=== PATIENT | male | born 1950 | race Caucasian/White ===

== ENCOUNTER 2022-11-07 19:05 | Inpatient (IN) ==
--- NOTE | 2022-11-07 19:45 | Emergency Department Note ---
Impression & Plan PARISH (dyspnea on exertion) ED Provider Note INFORMANT: Patient and family ED PROVIDER(S): Arturo Puente MD CHIEF COMPLAINT: Shortness of breath, dyspnea on exertion PLAN: Disposition: Admitted Condition: Good Outpatient prescription management: none Referral: None MEDICAL DECISION MAKING: Patient presented because of shortness of breath. He has a concerning cardiac history. Work-up was initiated. His ECG showed atrial fibrillation with T wave inversion but these are old. Patient had an unremarkable CBC and chemistry panel. INR was therapeutic at 3.0. Pacemaker interrogation was negative. Patient's BNP is markedly elevated and he does have cardiomegaly plus pulmonary vascular congestion on chest x-ray. Troponin was negative. I believe the patient is having issues with a shortness of breath from a cardiac standpoint. Patient was given IV Lasix. Further management in the hospital was felt to be appropriate. Consultation was made with the Dr. Rc Calvillo, [facility] Hospitalist service. Case was discussed and diagnostics were reviewed. Patient was evaluated in ER admitted for further management. Discussed with manager [employer] After review of the information above and other included data, I feel the patient requires admission. Triage Nursing notes reviewed and agree them. Vital Signs: reviewed and remarkable for no significant abnormalities Prior /Outside records reviewed: none Differential diagnosis: Reactive airway disease, pneumonia, pneumothorax, COPD, CHF, infections, cardiac ischemia, pulmonary embolism, musculoskeletal, gastrointestinal, as well as other pathologies. Diagnostics, as interpreted by me: ECG: Twelve-lead ECG reveals atrial fibrillation at 94 bpm. Right axis deviation. LVH with QRS widening. Lateral T wave inversions present. When compared to March 2022 there is no significant change. Cardiac Monitoring: Cardiac monitoring ordered by me: The patient was placed on continuous cardiac monitoring and observed. It revealed atrial fibrillation at 115 beats per minute. Medical decision rules: none Imaging studies: Chest x-ray shows cardiomegaly and and pulmonary vascular congestion concerning for CHF. HPI: The patient is a 72 year old male who presents to the Emergency Room with complaints of shortness of breath, dyspnea on exertion. This started over the last few weeks but has worsened over the last several days. Patient states he has difficulty walking 10 to 15 feet felt very significant shortness of breath. The patient also notes the following associated symptoms, fatigue and generalized weakness. Patient states he has a history of fluid buildup and pacemaker defibrillator. He is anticoagulated as well. The patient has found no relieving factors. Current pain is rated as 0/10. Patient also notes a chronic cough. Pt denies LOC, headache, fevers, chills, diaphoresis, visual changes, neck pain, chest pain, nausea, vomiting, abdominal pain, back pain, melena, hematochezia, urinary symptoms, numbness, , or other complaints. PAST MEDICAL HISTORY: See Below, cardiomyopathy, atrial fibrillation PAST SURGICAL HISTORY: See Below, pacemaker defibrillator SOCIAL HISTORY: See Below, retired HOME MEDICATIONS: See Below ALLERGIES: See Below VITALS: See Below PHYSICAL EXAMINATION: GENERAL: Awake, alert, [id number], in no distress HENT: Normocephalic, atraumatic. Oropharynx unremarkable. EYES: Normal conjunctiva. Sclera non-icteric. NECK: Inspection normal. Non-tender. Supple. No nuchal rigidity. FROM. No masses. RESPIRATORY: Clear to auscultation. No wheezes. No rales. Normal respiratory effort. CARDIAC: Normal rate. Irregular rhythm. No murmurs. No rubs. Extremities warm and well perfused. Pulses equal. No JVD. GI: Soft, non-distended. No tenderness to palpation. No rebound or guarding. No masses. RECTAL: Deferred. MUSCULOSKELETAL: Atraumatic. Chest examination reveals no tenderness. The back is symmetrical on inspection without obvious abnormality. There is no CVA tenderness to palpation. No joint edema. LOWER EXTREMITIES: Calves are equal size bilaterally and non-tender. No edema. No discoloration. NEURO: Normal sensorium. No sensory or motor deficits noted. SKIN: No rash or jaundice noted. Past Med/Surg History Medical History Anxiety Atrial fibrillation CKD (chronic kidney disease) Heart failure with reduced ejection fraction HLD (hyperlipidemia) HTN (hypertension) NICM (nonischemic cardiomyopathy) Pre-diabetes Social History Smoking Status: Never smoker Hx Alcohol Use: Yes Alcohol type: beer and hard liquor Hx Substance Use: No Preferred Language: Ugandan Beliefs That Will Affect Care: None Current Living Situation: Alone Feels Safe at Home: Yes Allergies Allergies Allergy/AdvReac Type Severity Reaction Status Date / Time No Known Allergies Allergy Unknown Verified 11/07/22 20:17 Home Meds Home Medications Medication Instructions Recorded Confirmed alprazolam 0.25 mg tablet (Xanax) 0.25 mg PO TID PRN Anxiety 03/24/22 11/07/22 furosemide 20 mg tablet (Lasix) 20 mg PO 3XWK 03/24/22 11/07/22 multivitamin 1 tab PO DAILY 03/24/22 11/07/22 spironolactone 25 mg tablet 12.5 mg PO 3XWK 03/24/22 11/07/22 thiamine HCl (vitamin B1) 100 mg 100 mg PO DAILY 03/24/22 11/07/22 tablet warfarin 5 mg tablet See Rx Instructions .Route .COMPLEX 03/24/22 11/07/22 digoxin 125 mcg (0.125 mg) tablet 125 mcg PO 3XWK 11/07/22 11/07/22 metoprolol succinate 50 mg 50 mg PO BID 11/07/22 11/07/22 tablet,extended release 24 hr Results & Data (ED) Vital Signs Vital Signs - 24 hr 11/07/22 19:12 11/07/22 19:12 11/07/22 19:41 Temperature 36.6 C Temperature Source Temporal Artery Scan Pulse Rate 115 H 112 H Pulse Rate [Right Finger] Pulse Rate from SpO2 Sensor Pulse Rhythm Pulse Rhythm [Right Finger] Pulse Strength [Right Finger] Respiratory Rate 20 Respiratory Effort / Characteristics Non-Labored Non-Labored Spontaneous Respiratory Depth Normal Normal Blood Pressure 122/84 Blood Pressure [Right Arm] Blood Pressure Mean 96 Blood Pressure Mean [Right Arm] Pulse Oximetry 97 Oxygen Delivery Method Room Air Sepsis Recent Fever Within 48 Hours No Sepsis New/Unexplained Change in Mental Status N/A Sepsis Action Taken by Nursing No Action Required 11/07/22 19:30 11/07/22 19:30 11/07/22 20:30 Temperature Temperature Source Pulse Rate 116 H Pulse Rate [Right Finger] 116 H Pulse Rate from SpO2 Sensor Pulse Rhythm Regular Pulse Rhythm [Right Finger] Irregular Pulse Strength [Right Finger] Normal Respiratory Rate 16 20 Respiratory Effort / Characteristics Non-Labored Spontaneous Respiratory Depth Normal Blood Pressure Blood Pressure [Right Arm] 117/94 Blood Pressure Mean Blood Pressure Mean [Right Arm] 101 Pulse Oximetry 96 96 Oxygen Delivery Method Room Air Room Air Sepsis Recent Fever Within 48 Hours Sepsis New/Unexplained Change in Mental Status Sepsis Action Taken by Nursing 11/07/22 19:40 11/07/22 19:41 11/07/22 20:00 Temperature Temperature Source Pulse Rate 112 H Pulse Rate [Right Finger] Pulse Rate from SpO2 Sensor Pulse Rhythm Pulse Rhythm [Right Finger] Pulse Strength [Right Finger] Respiratory Rate 29 H Respiratory Effort / Characteristics Respiratory Depth Blood Pressure 115/94 117/94 Blood Pressure [Right Arm] Blood Pressure Mean 101 101 Blood Pressure Mean [Right Arm] Pulse Oximetry Oxygen Delivery Method Sepsis Recent Fever Within 48 Hours Sepsis New/Unexplained Change in Mental Status Sepsis Action Taken by Nursing 11/07/22 20:00 11/07/22 20:30 11/07/22 20:30 Temperature Temperature Source Pulse Rate 102 H 115 H Pulse Rate [Right Finger] Pulse Rate from SpO2 Sensor 109 H 112 H Pulse Rhythm Pulse Rhythm [Right Finger] Pulse Strength [Right Finger] Respiratory Rate 26 H 21 Respiratory Effort / Characteristics Respiratory Depth Blood Pressure 138/97 Blood Pressure [Right Arm] Blood Pressure Mean 110 Blood Pressure Mean [Right Arm] Pulse Oximetry 95 96 Oxygen Delivery Method Sepsis Recent Fever Within 48 Hours Sepsis New/Unexplained Change in Mental Status Sepsis Action Taken by Nursing 11/07/22 21:00 11/07/22 21:00 11/07/22 21:30 Temperature Temperature Source Pulse Rate 118 H Pulse Rate [Right Finger] Pulse Rate from SpO2 Sensor 114 H Pulse Rhythm Pulse Rhythm [Right Finger] Pulse Strength [Right Finger] Respiratory Rate 27 H Respiratory Effort / Characteristics Respiratory Depth Blood Pressure 130/99 140/97 Blood Pressure [Right Arm] Blood Pressure Mean 109 111 Blood Pressure Mean [Right Arm] Pulse Oximetry 96 Oxygen Delivery Method Sepsis Recent Fever Within 48 Hours Sepsis New/Unexplained Change in Mental Status Sepsis Action Taken by Nursing 11/07/22 21:30 11/07/22 22:00 11/07/22 22:00 Temperature Temperature Source Pulse Rate 116 H 109 H Pulse Rate [Right Finger] Pulse Rate from SpO2 Sensor 108 H 117 H Pulse Rhythm Pulse Rhythm [Right Finger] Pulse Strength [Right Finger] Respiratory Rate 26 H 27 H Respiratory Effort / Characteristics Respiratory Depth Blood Pressure 116/96 Blood Pressure [Right Arm] Blood Pressure Mean 102 Blood Pressure Mean [Right Arm] Pulse Oximetry 97 97 Oxygen Delivery Method Sepsis Recent Fever Within 48 Hours Sepsis New/Unexplained Change in Mental Status Sepsis Action Taken by Nursing 11/07/22 22:30 11/07/22 22:30 11/07/22 23:00 Temperature Temperature Source Pulse Rate 108 H Pulse Rate [Right Finger] Pulse Rate from SpO2 Sensor 110 H Pulse Rhythm Pulse Rhythm [Right Finger] Pulse Strength [Right Finger] Respiratory Rate 25 H Respiratory Effort / Characteristics Respiratory Depth Blood Pressure 126/101 H 131/103 H Blood Pressure [Right Arm] Blood Pressure Mean 109 112 Blood Pressure Mean [Right Arm] Pulse Oximetry 95 Oxygen Delivery Method Sepsis Recent Fever Within 48 Hours Sepsis New/Unexplained Change in Mental Status Sepsis Action Taken by Nursing 11/07/22 23:00 11/07/22 23:30 11/07/22 23:30 Temperature Temperature Source Pulse Rate 105 H 120 H Pulse Rate [Right Finger] Pulse Rate from SpO2 Sensor 105 H Pulse Rhythm Pulse Rhythm [Right Finger] Pulse Strength [Right Finger] Respiratory Rate 23 26 H Respiratory Effort / Characteristics Respiratory Depth Blood Pressure 142/119 H Blood Pressure [Right Arm] Blood Pressure Mean 126 Blood Pressure Mean [Right Arm] Pulse Oximetry 96 Oxygen Delivery Method Sepsis Recent Fever Within 48 Hours Sepsis New/Unexplained Change in Mental Status Sepsis Action Taken by Nursing Laboratory Data 11/07/22 19:49 11/07/22 21:13 Lab Results 11/07/22 11/07/22 11/07/22 Range/Units 19:42 19:49 19:49 WBC 4.82 (4.8-10.8) K/ul RBC 4.80 (4.70-6.10) M/uL Hgb 15.1 (14.0-18.0) g/dl Hct 46.2 (42.0-52.0) % MCV 96.3 (80.0-100.0) fL MCH 31.5 (25.0-34.0) pg MCHC 32.7 (32.0-36.0) g/dL RDW Std Deviation 51.0 H (36.4-46.3) fL RDW Coeff of Ashley 15.1 H (11.5-14.5) % Plt Count 152 (130-400) K/uL MPV 12.7 H (9.4-12.4) fL Immature Gran % (Auto) 0.4 % Neut % (Auto) 76.4 % Lymph % (Auto) 13.1 % [place] % (Auto) 9.1 % Eos % (Auto) 0.4 % Baso % (Auto) 0.6 % Neut # (Auto) 3.68 (1.40-6.50) K/uL Lymph # (Auto) 0.63 L (1.2-3.4) K/uL [place] # (Auto) 0.44 (0.11-0.59) K/uL Eos # (Auto) 0.02 (0-0.50) K/uL Baso # (Auto) 0.03 (0-0.2) K/uL Immature Gran # (Auto) 0.02 (0.01-0.20) K/uL PT INR Sodium Potassium Chloride Carbon Dioxide Anion Gap BUN Creatinine Est Cr Clr Drug Dosing Est GFR ( Amer) Est GFR (Non-Af Amer) BUN/Creatinine Ratio Glucose Calcium Magnesium Total Bilirubin AST ALT Alkaline Phosphatase Troponin I High Sens B-Natriuretic Peptide Cancelled Total Protein Albumin Globulin Albumin/Globulin Ratio SARS-CoV-2, RNA, NAAT NEGATIVE (NEGATIVE) 11/07/22 11/07/22 11/07/22 Range/Units 19:49 19:49 21:13 WBC (4.8-10.8) K/ul RBC (4.70-6.10) M/uL Hgb (14.0-18.0) g/dl Hct (42.0-52.0) % MCV (80.0-100.0) fL MCH (25.0-34.0) pg MCHC (32.0-36.0) g/dL RDW Std Deviation (36.4-46.3) fL RDW Coeff of Ashley (11.5-14.5) % Plt Count (130-400) K/uL MPV (9.4-12.4) fL Immature Gran % (Auto) % Neut % (Auto) % Lymph % (Auto) % [place] % (Auto) % Eos % (Auto) % Baso % (Auto) % Neut # (Auto) (1.40-6.50) K/uL Lymph # (Auto) (1.2-3.4) K/uL [place] # (Auto) (0.11-0.59) K/uL Eos # (Auto) (0-0.50) K/uL Baso # (Auto) (0-0.2) K/uL Immature Gran # (Auto) (0.01-0.20) K/uL PT Cancelled 30.0 H INR Cancelled 3.0 H Sodium Cancelled Potassium Cancelled Chloride Cancelled Carbon Dioxide Cancelled Anion Gap Cancelled BUN Cancelled Creatinine Cancelled Est Cr Clr Drug Dosing Cancelled Est GFR ( Amer) Cancelled Est GFR (Non-Af Amer) Cancelled BUN/Creatinine Ratio Cancelled Glucose Cancelled Calcium Cancelled Magnesium Cancelled Total Bilirubin Cancelled AST Cancelled ALT Cancelled Alkaline Phosphatase Cancelled Troponin I High Sens Cancelled B-Natriuretic Peptide Total Protein Cancelled Albumin Cancelled Globulin Cancelled Albumin/Globulin Ratio Cancelled SARS-CoV-2, RNA, NAAT (NEGATIVE) 11/07/22 11/07/22 Range/Units 21:13 21:13 WBC (4.8-10.8) K/ul RBC (4.70-6.10) M/uL Hgb (14.0-18.0) g/dl Hct (42.0-52.0) % MCV (80.0-100.0) fL MCH (25.0-34.0) pg MCHC (32.0-36.0) g/dL RDW Std Deviation (36.4-46.3) fL RDW Coeff of Ashley (11.5-14.5) % Plt Count (130-400) K/uL MPV (9.4-12.4) fL Immature Gran % (Auto) % Neut % (Auto) % Lymph % (Auto) % [place] % (Auto) % Eos % (Auto) % Baso % (Auto) % Neut # (Auto) (1.40-6.50) K/uL Lymph # (Auto) (1.2-3.4) K/uL [place] # (Auto) (0.11-0.59) K/uL Eos # (Auto) (0-0.50) K/uL Baso # (Auto) (0-0.2) K/uL Immature Gran # (Auto) (0.01-0.20) K/uL PT INR Sodium 138 Potassium 4.6 Chloride 105 Carbon Dioxide 23 Anion Gap 10 BUN 32 H Creatinine 1.35 Est Cr Clr Drug Dosing 59.5 Est GFR ( Amer) 60.4 Est GFR (Non-Af Amer) 52.1 BUN/Creatinine Ratio 23.7 H Glucose 98 Calcium 9.7 Magnesium 1.9 Total Bilirubin 1.6 H AST 38 ALT 30 Alkaline Phosphatase 112 H Troponin I High Sens 14.6 B-Natriuretic Peptide 2659 H Total Protein 6.9 Albumin 3.7 Globulin 3.2 Albumin/Globulin Ratio 1.2 SARS-CoV-2, RNA, NAAT (NEGATIVE) Administered Medications Discontinued Medications Furosemide (Furosemide 40 Mg/4 Ml Vial) 40 mg IV ONE ONE Stop: 11/07/22 22:21 Last Admin: 11/07/22 22:47 Dose: 40 mg Documented By: JOCELYNE Magnesium Sulfate/Dextrose (Magnesium Sulfate / D5w) 1 gm in 100 mls @ 50 mls/hr IV ONE ONE Stop: 11/08/22 01:01 Last Infusion: 11/08/22 00:52 Dose: 50 mls/hr Documented By: Infusion: 11/08/22 00:45 Dose: 0 mls/hr Documented By: Admin: 11/07/22 23:35 Dose: 50 mls/hr Documented By: INDIGO Thiamine HCl 100 mg/ Syringe 10 mls @ 2 mls/min IV NOW ONE Stop: 11/07/22 23:19 Last Admin: 11/08/22 00:45 Dose: 2 mls/min Documented By: INDIGO Albumin Human (Albumin 25%) 12.5 gm in 50 mls @ 50 mls/hr IV ONE ONE Stop: 11/08/22 00:44 Last Admin: 11/08/22 01:13 Dose: 50 mls/hr Documented By: PSYCHIATRIC ASSISTANT Ipratropium [place] (Ipratropium [place] Neb Soln 0.02% 2.5 Ml Vial) 0.5 mg INH NOW STA Stop: 11/07/22 23:50 Last Admin: 11/08/22 00:44 Dose: 0.5 mg Documented By: PSYCHIATRIC ASSISTANT Levalbuterol HCl (Levalbuterol 1.25mg/0.5ml Neb) 1.25 mg INH NOW STA Stop: 11/07/22 23:50 Last Admin: 11/08/22 00:45 Dose: 1.25 mg Documented By: PSYCHIATRIC ASSISTANT Metoprolol Succinate (Metoprolol Succ 50mg Ext Rel Tab) 50 mg PO NOW STA Stop: 11/07/22 23:49 Last Admin: 11/08/22 01:12 Dose: 50 mg Documented By: PSYCHIATRIC ASSISTANT Discharge Plan Visit Data Chief Complaint: Shortness of Breath/Dyspnea Stated Complaint: SOB ED Provider: Arturo Puente Discharge Problem: PAR[place] (dyspnea on exertion) Discharge Instructions Interventions: ED Discharge Assessment Last Done: 11/08/22 01:19
[2022-11-07 20:00] LABS: Basophils # (auto) 0.03 K/uL (0-0.2); Basophils % (auto) 0.6 %; Eosinophils # (auto) 0.02 K/uL (0-0.50); Eosinophils % (auto) 0.4 %; Hematocrit (blood only) 46.2 % (42.0-52.0); Hemoglobin 15.1 g/dl (14.0-18.0); Immature Granulocytes # (auto) 0.02 K/uL (0.01-0.20); Immature Granulocytes % (auto) 0.4 %; Lymphocytes # (auto) 0.63 K/uL (1.2-3.4); Lymphocytes % (auto) 13.1 %; Mean Corpuscular Hemoglobin 31.5 pg (25.0-34.0); Mean Corpuscular Hgb Conc 32.7 g/dL (32.0-36.0); Mean Corpuscular Volume 96.3 fL (80.0-100.0); Mean Platelet Volume 12.7 fL (9.4-12.4); Monocytes # (auto) 0.44 K/uL (0.11-0.59); Monocytes % (auto) 9.1 %; Neutrophils # (auto) 3.68 K/uL (1.40-6.50); Neutrophils % (auto) 76.4 %; Platelet Count 152 K/uL (130-400); RDW Coefficient of Variation 15.1 % (11.5-14.5); White Blood Count 4.82 K/ul (4.8-10.8)
[2022-11-07 21:53] LABS: Albumin Globulin Ratio 1.2 (0.9-2); Albumin Level 3.7 gm/dl (3.4-5.0); BUN Creatinine Ratio 23.7 (10-20); Bilirubin,Total 1.6 mg/dl (0.2-1.0); Calcium 9.7 mg/dl (8.6-10.3); Creatinine Clr Calc Pharmacy 59.5 ml/min; Est GFR (African American) 60.4 ml/min; Est GFR (Non-African American) 52.1 ml/min; Globulin 3.2 gm/dl (2.5-4.0); Magnesium 1.9 mg/dl (1.7-2.4); Potassium 4.6 mmol/L (3.5-5.1); Total Protein 6.9 gm/dl (6.0-8.3)
[2022-11-07 22:00] LABS: Troponin I High Sensitivity 14.6 pg/ml (0-20)
[2022-11-07] MEDS ORDERED: FUROSEMIDE 40 MG/4 ML VIAL IV ONE (22:20)
[2022-11-07] MEDS ORDERED: MAGNESIUM SULFATE / D5W 1 GM/100 ML BAG IV ONE (23:02)
--- NOTE | 2022-11-07 23:11 | History & Physical Report ---
Date of Service November 07, 2022 Assessment & Plan (1) Decompensated heart failure: Plan: hx chronic systolic heart failure secondary to dilated cardiomyopathy status post ICD (EF 20 to 24%, TTE 2022) Underlying pulmonary hypertension Uncontrolled A-fib heart rate and alcohol abuse contributory INR therapeutic valvular heart disease (moderate MR/TR) aortic root/ascending aorta enlargement anxiety disorder, at baseline prediabetes, hemoglobin A1c of 6.15 June 2021 PCU Diuretic Rx strict I/Os, daily weights, CHF education, fluid restriction Titrate home beta-florencio Cardiology consult re: decompensated heart failure DT precautions, initiate DAVIS S with signs of alcohol withdrawal DVT prophylaxis. Coumadin INR goal between 2 and 3 Full code Text document was generated using [employer] voice recognition software. It may contain grammatical or spelling errors. Kindly contact undersigned for clarification of any documentation item in question. History of Present Illness Chief Complaint: Worsening shortness of breath Primary Care Provider: Aquiles Trevino MD History obtained from patient, family, and records. Medical history significant for chronic systolic heart failure secondary to dilated cardiomyopathy status post ICD (EF 20 to 24%, TTE 2022), A-fib on Coum avani, valvular heart disease (moderate MR/TR), aortic root/ascending aorta enlargement, pulmonary hypertension, hypertension, hyperlipidemia, anxiety disorder, prediabetes, alcohol abuse as per records. [place] [facility] [place] on follow-up visit 5 days ago. Patient complained of fatigue and shortness of breath on exertion, orthopnea and palpitation symptoms. No peripheral edema. Outpatient chest x-ray showed Right greater than left pleural effusions and atelectasis and cardiomegaly; no evidence of acute pulmonary edema. Outpatient TTE results as follows There was atrial fibrillation during the examination. The left ventricular cavity size is severely enlarged. There is severe diffuse left ventricular hypokinesis. The qualitative LV ejection fraction is 20-24% (severely reduced). Severe biatrial enlargement is present. Moderate mitral regurgitation is present. Moderate tricuspid regurgitation is present. Dilated IVC with reduced collapsability with sniff indicates an elevated right atrial pressure of 15 mmHg. The estimated pulmonary artery systolic pressure is 55 mm Hg. The aortic root is mildly enlarged, 4.1 cm. The proximal ascending thoracic aorta is mildly enlarged, 4.4 cm. TSH within normal limits. ICD interrogation discloses persistent A-fib with uncontrolled ventricular rates with note of 44 episodes of NSVT since May 2022. Patient instructed to hold lisinopril to allow for additional rate lowering medications. Toprol-XL dose increased and digoxin initiated. As needed Lasix and spironolactone both changed from as needed to 20 mg 3 times a week dosing due to decompensated CHF concerns. Worsening exertional SOB symptoms despite compliance with new regimen. Patient actually losing weight. No chest pain. Leg swelling somewhat the same. Denies headache symptoms. IV Lasix administered at the ER. Medical History as above Surgical History : ICD Family History : AAA Personal/Social history : Non-smoker, alcohol abuse as per records, senior landscape architect Allergies Allergy/AdvReac Type Severity Reaction Status Date / Time No Known Allergies Allergy Unknown Verified 11/07/22 20:17 Home Medications Medication Instructions Recorded Confirmed Type alprazolam 0.25 mg tablet (Xanax) 0.25 mg PO TID PRN Anxiety 03/24/22 11/07/22 History furosemide 20 mg tablet (Lasix) 20 mg PO 3XWK 03/24/22 11/07/22 History multivitamin 1 tab PO DAILY 03/24/22 11/07/22 History spironolactone 25 mg tablet 12.5 mg PO 3XWK 03/24/22 11/07/22 History thiamine HCl (vitamin B1) 100 mg 100 mg PO DAILY 03/24/22 11/07/22 History tablet warfarin 5 mg tablet See Rx Instructions .Route .COMPLEX 03/24/22 11/07/22 History digoxin 125 mcg (0.125 mg) tablet 125 mcg PO 3XWK 11/07/22 11/07/22 History metoprolol succinate 50 mg 50 mg PO BID 11/07/22 11/07/22 History tablet,extended release 24 hr Past Med/Surg History Medical History Anxiety Atrial fibrillation CKD (chronic kidney disease) Heart failure with reduced ejection fraction HLD (hyperlipidemia) HTN (hypertension) NICM (nonischemic cardiomyopathy) Pre-diabetes Social History Smoking Status: Never smoker Hx Alcohol Use: Yes Alcohol type: beer and hard liquor Hx Substance Use: No Preferred Language: Bulgarian Beliefs That Will Affect Care: None Current Living Situation: Alone Feels Safe at Home: Yes Review of Systems Review of Systems: As per HPI, all other systems reviewed and negative Physical Exam Physical Exam: GENERAL: Comfortable, slightly anxious, chronically ill, no respiratory distress SKIN: Normal color, warm HEENT: Aten palpebral conjunctivae, no ptosis, dry buccal mucosa NECK : Supple, no tenderness CHEST : CTA, no tenderness HEART : Irregular, tachycardic, systolic murmur ABDOMEN: Some distention, nontender EXTREMITIES : Minimal LE swelling, no LE tenderness, no other conspicuous deformities noted NEUROLOGIC : Coherent, no facial asymmetry, no other gross focality Results & Data Results & Data Vital Signs (Past 12 Hours) Vital Signs Temp Pulse Pulse Resp BP BP Pulse Ox 11/07/22 20:00 102 H 26 H 95 11/07/22 20:00 117/94 11/07/22 19:41 112 H 29 H 11/07/22 19:40 115/94 11/07/22 20:30 11/07/22 19:30 116 H 20 96 11/07/22 19:30 116 H 16 117/94 96 11/07/22 19:41 112 H 11/07/22 19:12 36.6 C 115 H 20 122/84 97 O2 Del Method 11/07/22 20:00 11/07/22 20:00 11/07/22 19:41 11/07/22 19:40 11/07/22 20:30 Room Air 11/07/22 19:30 Room Air 11/07/22 19:30 11/07/22 19:41 11/07/22 19:12 Room Air Laboratory Results Laboratory Results WBC 4.82 K/ul (4.8-10.8) 11/07/22 19:49 RBC 4.80 M/uL (4.70-6.10) 11/07/22 19:49 Hgb 15.1 g/dl (14.0-18.0) 11/07/22 19:49 Hct 46.2 % (42.0-52.0) 11/07/22 19:49 MCV 96.3 fL (80.0-100.0) 11/07/22 19:49 MCH 31.5 pg (25.0-34.0) 11/07/22 19:49 MCHC 32.7 g/dL (32.0-36.0) 11/07/22 19:49 RDW Std Deviation 51.0 fL (36.4-46.3) H 11/07/22 19:49 RDW Coeff of Ashley 15.1 % (11.5-14.5) H 11/07/22 19:49 Plt Count 152 K/uL (130-400) 11/07/22 19:49 MPV 12.7 fL (9.4-12.4) H 11/07/22 19:49 Immature Gran % (Auto) 0.4 % 11/07/22 19:49 Neut % (Auto) 76.4 % 11/07/22 19:49 Lymph % (Auto) 13.1 % 11/07/22 19:49 [place] % (Auto) 9.1 % 11/07/22 19:49 Eos % (Auto) 0.4 % 11/07/22 19:49 Baso % (Auto) 0.6 % 11/07/22 19:49 Neut # (Auto) 3.68 K/uL (1.40-6.50) 11/07/22 19:49 Lymph # (Auto) 0.63 K/uL (1.2-3.4) L 11/07/22 19:49 [place] # (Auto) 0.44 K/uL (0.11-0.59) 11/07/22 19:49 Eos # (Auto) 0.02 K/uL (0-0.50) 11/07/22 19:49 Baso # (Auto) 0.03 K/uL (0-0.2) 11/07/22 19:49 Immature Gran # (Auto) 0.02 K/uL (0.01-0.20) 11/07/22 19:49 PT 30.0 Seconds (9.0-12.0) H 11/07/22 21:13 INR 3.0 (0.9-1.1) H 11/07/22 21:13 Sodium 138 mmol/L (136-145) 11/07/22 21:13 Potassium 4.6 mmol/L (3.5-5.1) 11/07/22 21:13 Chloride 105 mmol/L (98-107) 11/07/22 21:13 Carbon Dioxide 23 mmol/L (21-32) 11/07/22 21:13 Anion Gap 10 (3-11) 11/07/22 21:13 BUN 32 mg/dl (6-23) H 11/07/22 21:13 Creatinine 1.35 mg/dl (0.6-1.4) 11/07/22 21:13 Est Cr Clr Drug Dosing 59.5 ml/min 11/07/22 21:13 Est GFR ( Amer) 60.4 ml/min 11/07/22 21:13 Est GFR (Non-Af Amer) 52.1 ml/min 11/07/22 21:13 BUN/Creatinine Ratio 23.7 (10-20) H 11/07/22 21:13 Glucose 98 mg/dl (70-99(Fasting)) 11/07/22 21:13 Calcium 9.7 mg/dl (8.6-10.3) 11/07/22 21:13 Magnesium 1.9 mg/dl (1.7-2.4) 11/07/22 21:13 Total Bilirubin 1.6 mg/dl (0.2-1.0) H 11/07/22 21:13 AST 38 U/L (13-39) 11/07/22 21:13 ALT 30 U/L (7-52) 11/07/22 21:13 Alkaline Phosphatase 112 U/L (34-104) H 11/07/22 21:13 Troponin I High Sens 14.6 pg/ml (0-20) 11/07/22 21:13 B-Natriuretic Peptide 2659 pg/ml (0-100) H 11/07/22 21:13 Total Protein 6.9 gm/dl (6.0-8.3) 11/07/22 21:13 Albumin 3.7 gm/dl (3.4-5.0) 11/07/22 21:13 Globulin 3.2 gm/dl (2.5-4.0) 11/07/22 21:13 Albumin/Globulin Ratio 1.2 (0.9-2) 11/07/22 21:13 SARS-CoV-2, RNA, NAAT NEGATIVE (NEGATIVE) 11/07/22 19:42 Diagnostic Findings Chest x-ray as per my interpretation cardiomegaly, congestion, pleural effusions EKG as per my interpretation : Rate 95, A-fib, RAD, LVH, T wave abnormalities inferior and lateral leads
[2022-11-07] MEDS ORDERED: THIAMINE HCL 100 MG in SYRINGE 9 ML IV ONE (23:15)
[2022-11-07] MEDS ORDERED: XOPENEX/ATROVENT 1.25mg/0.5MG NEB COMBO NEB STA (23:35)
[2022-11-07] MEDS ORDERED: ALBUMIN 25% 12.5 GM/50 ML VIAL IV ONE (23:45)
[2022-11-07] MEDS ORDERED: METOPROLOL SUCC 50MG EXT REL TAB PO STA (23:48)
[2022-11-07] MEDS ORDERED: IPRATROPIUM BROMIDE NEB SOLN 0.02% 2.5 ML VIAL INH STA (23:49)
[2022-11-07] MEDS ORDERED: LEVALBUTEROL 1.25MG/0.5ML NEB INH STA (23:49)
[2022-11-08 00:09] LABS: Appearance Urine Clear (Clear); Bacteria Urine Automated Negative (Negative); Bilirubin Urine Negative (Negative); Blood Urine Negative (Negative); Color Urine Yellow; Epithelial Cell Urine Auto 0-5 /lpf (0-5); Glucose Urine UA Negative (Negative); Ketones Urine Negative (Negative); Leukocyte Esterase Urine Negative (Negative); Nitrite Urine Negative (Negative); Protein Urine Trace (Negative); RBC Urine Automated 0-4 /hpf (0-4); Specific Gravity Urine 1.012 (1.000-1.030); Urobilinogen Urine Negative (Negative); WBC Urine Automated 0 /hpf (0-5)
[2022-11-08] MEDS ORDERED: NITROGLYCERIN SL 0.4 MG/TAB TAB SL PRN (01:20)
[2022-11-08] MEDS ORDERED: ALPRAZolam 0.5 MG TABLET PO PRN (01:20)
[2022-11-08] MEDS ORDERED: ACETAMINOPHEN 325 MG TAB PO PRN (01:20)
[2022-11-08 06:27] LABS: Basophils # (auto) 0.02 K/uL (0-0.2); Basophils % (auto) 0.4 %; Eosinophils # (auto) 0.02 K/uL (0-0.50); Eosinophils % (auto) 0.4 %; Hematocrit (blood only) 41.4 % (42.0-52.0); Hemoglobin 14.2 g/dl (14.0-18.0); Immature Granulocytes # (auto) 0.03 K/uL (0.01-0.20); Immature Granulocytes % (auto) 0.6 %; Lymphocytes # (auto) 0.87 K/uL (1.2-3.4); Lymphocytes % (auto) 16.8 %; Mean Corpuscular Hemoglobin 31.5 pg (25.0-34.0); Mean Corpuscular Hgb Conc 34.3 g/dL (32.0-36.0); Mean Corpuscular Volume 91.8 fL (80.0-100.0); Mean Platelet Volume 10.7 fL (9.4-12.4); Monocytes # (auto) 0.56 K/uL (0.11-0.59); Monocytes % (auto) 10.8 %; Neutrophils # (auto) 3.68 K/uL (1.40-6.50); Platelet Count 112 K/uL (130-400); RDW Coefficient of Variation 14.2 % (11.5-14.5); RDW Standard Deviation 47.9 fL (36.4-46.3); Red Blood Count 4.51 M/uL (4.70-6.10); White Blood Count 5.18 K/ul (4.8-10.8)
[2022-11-08 06:35] LABS: BUN Creatinine Ratio 26.7 (10-20); Calcium 9.5 mg/dl (8.6-10.3); Creatinine Clr Calc Pharmacy 76.5 ml/min; Est GFR (African American) 81.8 ml/min; Est GFR (Non-African American) 70.6 ml/min; Potassium 3.8 mmol/L (3.5-5.1)
[2022-11-08 06:36] LABS: INR 2.4 (0.9-1.1); Prothrombin Time 24.8 Seconds (9.0-12.0)
--- NOTE | 2022-11-08 07:09 | XRay Report ---
SINGLE VIEW CHEST CLINICAL HISTORY: Dyspnea FINDINGS: 2 AP, portable, upright chest radiographs are compared to study dated 03/26/2022. The examin ation is degraded by portable technique and patient rotation. The heart is enlarged. There is pulmon jimmy vascular congestion. Bilateral airspace opacities likely represent interstitial edema. There are right larger than left pleural effusions with dependent consolidation. No pneumothorax is seen. The s keletal structures are osteopenic. The bony thorax is grossly intact. IMPRESSION: 1. Cardiomegaly with evidence of congestive failure and pulmonary edema. 2. Right larger than left pleural effusions with dependent consolidation. ACT 112: Negative or not required by law. Electronically signed by: Jordan Conley M.D. 11/08/2022 7:08 AM
[2022-11-08] MEDS ORDERED: METOPROLOL SUCC 50MG EXT REL TAB PO SCH ×2 (07:30→09:00)
[2022-11-08] MEDS ORDERED: POTASSIUM CHLORIDE CRTAB 20 MEQ TABCR PO STA (07:30)
[2022-11-08] MEDS ORDERED: FUROSEMIDE 40 MG/4 ML VIAL IV SCH (08:00)
[2022-11-08] MEDS: METOPROLOL SUCC 25MG EXT REL TAB PO SCH ×2 (08:06→21:24)
[2022-11-08] MEDS ORDERED: SPIRONOLACTONE 12.5 MG TAB PO SCH (09:00)
[2022-11-08] MEDS: MULTIVITAMIN TAB PO SCH (09:05)
[2022-11-08] MEDS: THIAMINE HCL 100 MG TAB PO SCH (09:05)
[2022-11-08] MEDS: FOLIC ACID 1 MG TAB PO SCH (09:05)
--- NOTE | 2022-11-08 09:34 | Cardiology Consultation ---
Date of Consultation November 08, 2022 Assessment & Plan (1) Heart failure, systolic, with acute decompensation: (2) Permanent atrial fibrillation: (3) Atrial fibrillation with rapid ventricular response: (4) NYHA class 3 acute on chronic systolic heart failure: (5) Moderate mitral regurgitation: (6) Pulmonary hypertension: (7) Aortic root enlargement: (8) Stage III chronic kidney disease: (9) Chronic alcohol use: Plan Utilize IV furosemide, 40 mg twice a day Increase spironolactone to 12.5 mg/day for now Titrate beta-florencio therapy for additional heart rate control on the permanent atrial fibrillation Continue the recently prescribed low dose digoxin. Continue to hold lisinopril for now. Strict I/Os, daily weights, sodium and fluid restriction, CHF education. Daily AM laboratory work History of Present Illness Reason for Consultation: CHF Requesting Physician: Karli Attending Physician: Ran History of Present Illness Mr. Jarad Padilla is a 72 year old male who who presented to the [facility] ER on 11/07 due to acute on chronic dyspnea, increased exertional dyspnea. Patient unable to ambulate the hallway in his office without experiencing dyspnea. Notes an intermittent cough, fatigue, generalized weakness, difficulty sleeping, ort hopnea, and palpitations. No chest pain. No peripheral edema. No dizziness or syncope. No fevers or rigors. No epistaxis, hemoptysis, melena, hematochezia, or hematuria. Patient received 40 mg IV furosemide in the ER with resultant 1.1 L fluid output, subsequent improvement in presenting symptoms Past Medical and Surgical History: Permanent atrial fibrillation Nonischemic cardiomyopathy, NYHA Class III, ejection fraction 20-24%. Status post March 26, 2022 single-chamber rate responsive Medtronic cardiac defibrillator implantation by Dr. Cheatham at [facility] Moderate mitral regurgitation Pulmonary hypertension, estimated PASP 50 mmHg via November 2021 TTE. Moderate enlarged aortic root (4.5 cm) Mildly enlarged ascending aorta (4.4 cm). 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 Chronic alcohol use Family History: Father with an AAA. Mother young. 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 Alcohol: 3 beers per day Allergies Allergy/AdvReac Type Severity Reaction Status Date / Time No Known Allergies Allergy Unknown Verified 11/07/22 20:17 Home Medications Medication Instructions Recorded Confirmed Type alprazolam 0.25 mg tablet (Xanax) 0.25 mg PO TID PRN Anxiety 03/24/22 11/07/22 History furosemide 20 mg tablet (Lasix) 20 mg PO 3XWK 03/24/22 11/07/22 History multivitamin 1 tab PO DAILY 03/24/22 11/07/22 History spironolactone 25 mg tablet 12.5 mg PO 3XWK 03/24/22 11/07/22 History thiamine HCl (vitamin B1) 100 mg 100 mg PO DAILY 03/24/22 11/07/22 History tablet warfarin 5 mg tablet See Rx Instructions .Route .COMPLEX 03/24/22 11/07/22 History digoxin 125 mcg (0.125 mg) tablet 125 mcg PO 3XWK 11/07/22 11/07/22 History metoprolol succinate 50 mg 50 mg PO BID 11/07/22 11/07/22 History tablet,extended release 24 hr Patient History Medical History Anxiety Atrial fibrillation CKD (chronic kidney disease) Heart failure with reduced ejection fraction HLD (hyperlipidemia) HTN (hypertension) NICM (nonischemic cardiomyopathy) Pre-diabetes Social History Smoking Status: Never smoker Hx Alcohol Use: Yes Alcohol type: beer and hard liquor Hx Substance Use: No Preferred Language: Malian Beliefs That Will Affect Care: None Current Living Situation: Alone Feels Safe at Home: Yes Review of Systems Review of Systems: Complete Review of Systems is as stated above, negative, or noncontributory. Physical Exam Physical Exam: General: A&Ox3. NAD. HENT: Normocephalic. Atraumatic. Eyes: PER. Conjunctiva pink, sclera clear. Neck: +JVD. + HJR. No carotid bruits. Heart: Irregularly irregular at 110 bpm. Somewhat distant heart sounds. Soft apical systolic murmur. Displaced PMI. Lungs: Absent breath sounds on the right. Bibasilar rales. No wheeze. Abdomen: +BS. Soft. Pulsatile liver with hepatomegaly. Nontender. Extremities: No clubbing. No cyanosis. No edema. Limited neurological examination is without focal deficits. Pulses: radial=2/4, posterior tibial=1/4. Results & Data Vital Signs (Past 12 Hours) Vital Signs Temp Pulse Pulse Resp BP BP Pulse Ox 11/08/22 07:05 119 H 11/08/22 06:30 100 H 17 136/97 94 11/08/22 06:00 91 H 16 132/96 93 11/08/22 05:30 110 H 19 137/107 H 97 11/08/22 05:00 85 12 124/103 H 91 11/08/22 04:30 92 H 15 132/111 H 96 11/08/22 04:00 80 19 130/90 98 11/08/22 03:30 90 19 125/101 H 97 11/08/22 03:00 88 20 126/102 H 97 11/08/22 02:30 113 H 24 11/08/22 02:30 134/95 11/08/22 02:00 102 H 20 97 11/08/22 02:00 151/108 H 11/08/22 01:30 122 H 22 96 11/08/22 01:30 128/96 11/08/22 01:00 122 H 23 99 11/08/22 01:00 122/101 H 11/08/22 00:30 91 H 23 92 11/08/22 00:30 121/99 11/08/22 00:00 123 H 21 96 11/08/22 00:00 123/99 11/07/22 23:30 120 H 26 H 11/07/22 23:30 142/119 H 11/08/22 00:59 37.0 C 127 H 22 121/99 100 11/07/22 23:44 111 H 11/07/22 23:00 105 H 23 96 11/07/22 23:00 131/103 H 11/07/22 22:30 108 H 25 H 95 11/07/22 22:30 126/101 H 11/07/22 22:00 109 H 27 H 97 11/07/22 22:00 116/96 Laboratory Results Cardiac Enzymes 11/07/22 11/07/22 11/07/22 Range/Units 19:49 19:49 21:13 AST Cancelled 38 Troponin I High Sens Cancelled 14.6 B-Natriuretic Peptide Cancelled 11/07/22 Range/Units 21:13 AST Troponin I High Sens B-Natriuretic Peptide 2659 H Coagulation 11/07/22 11/07/22 11/07/22 Range/Units 19:49 19:49 21:13 PT Cancelled 30.0 H B-Natriuretic Peptide Cancelled 11/07/22 11/08/22 Range/Units 21:13 05:49 PT 24.8 H B-Natriuretic Peptide 2659 H CBC 11/07/22 11/08/22 Range/Units 19:49 05:49 WBC 4.82 5.18 (4.8-10.8) K/ul RBC 4.80 4.51 L (4.70-6.10) M/uL Hgb 15.1 14.2 (14.0-18.0) g/dl Hct 46.2 41.4 L (42.0-52.0) % Plt Count 152 112 L (130-400) K/uL Neut # (Auto) 3.68 3.68 (1.40-6.50) K/uL Lymph # (Auto) 0.63 L 0.87 L (1.2-3.4) K/uL [place] # (Auto) 0.44 0.56 (0.11-0.59) K/uL Eos # (Auto) 0.02 0.02 (0-0.50) K/uL Baso # (Auto) 0.03 0.02 (0-0.2) K/uL Comprehensive Metabolic Panel 11/07/22 11/07/22 11/08/22 Range/Units 19:49 21:13 05:49 Sodium Cancelled 138 140 Potassium Cancelled 4.6 3.8 Chloride Cancelled 105 104 Carbon Dioxide Cancelled 23 23 BUN Cancelled 32 H 28 H Creatinine Cancelled 1.35 1.05 D Glucose Cancelled 98 93 Calcium Cancelled 9.7 9.5 AST Cancelled 38 ALT Cancelled 30 Alkaline Phosphatase Cancelled 112 H Total Protein Cancelled 6.9 Albumin Cancelled 3.7 Intake and Output 11/07/22 11/08/22 11/08/22 22:59 06:59 14:59 Intake Total 150.000 / 150.000 Output Total 1260 / 1260 Balance -1110.000 / -1110.000 Intake: IV 150.000 / 150.000 Albumin 25% 12.5 gm In 50 ml @ 50 / 50 50 mls/hr IV ONE ONE Rx#: [id number] Magnesium Sulfate / D5w 1 gm In 100.000 / 100.000 100 ml @ 50 mls/hr IV ONE ONE Rx#:[id number] Output: Urine 1260 / 1260 Other: Weight 85 kg Weight Measurement Method Built in [facility] Diagnostic Findings Device interrogation on October 29, 2022, personally reviewed. This is a Medtronic Visia AF MRI VR SureScan OEFE3P2, Serial Number [id number] device. The right ventricular lead is a Medtronic 6935M-62 cm, Serial Number [id number]. Remaining longevity: 11.1 years. Backup pacemaker set VVI 40 bpm. Ventricular paced 0.5% of the time. Persistent atrial fibrillation noted, with uncontrolled ventricular rates.. Forty-four episodes of nonsustained ventricular tachycardia observed since May 21, 2022. November 04, 2022 TTE Interpretation Summary (as per Dr. Reese): There was atrial fibrillation during the examination. The left ventricular cavity size is severely enlarged. There is severe diffuse left ventricular hypokinesis. The qualitative LV ejection fraction is 20-24% (severely reduced). Severe biatrial enlargement is present. Moderate mitral regurgitation is present. Moderate tricuspid regurgitation is present. Dilated IVC with reduced collapsability with sniff indicates an elevated right atrial pressure of 15 mmHg. The estimated pulmonary artery systolic pressure is 55 mm Hg. The aortic root is mildly enlarged, 4.1 cm. The proximal ascending thoracic aorta is mildly enlarged, 4.4 cm. Compared to the report of the prior study dated 11/26/21, there has been no significant change. EKG on presentation to the [facility] ER revealed atrial fibrillation with a ventricular rate of 94 bpm with right axis deviation, LVH with QRS widening, marked lateral STT wave abnormality. QTc 487 ms. Chest x-ray on presentation revealed cardiomegaly with evidence of congestive heart failure and pulmonary edema, right greater than left pleural effusions.
--- NOTE | 2022-11-08 15:01 | Electrocardiogram Report ---
Test Reason : Blood Pressure : / mmHG Vent. Rate : 094 BPM Atrial Rate : 107 BPM P-R Int : 000 ms QRS Dur : 116 ms QT Int : 390 ms P-R-T Axes : 000 127 207 degrees QTc Int : 487 ms Atrial fibrillation Right axis deviation Left ventricular hypertrophy with QRS widening Marked ST abnormality, possible lateral subendocardial injury Prolonged QT Abnormal ECG When compared with ECG of 26-MAR-2022 17:45, QRS axis Shifted right Confirmed by Manny Werner ([id number]) on 11/08/2022 3:01:31 PM Referred By: REFERRED SELF Confirmed By:Manny Werner
--- NOTE | 2022-11-08 16:44 | Hospitalist Progress Note ---
Date of Service November 08, 2022 Assessment & Plan (1) Decompensated heart failure: Plan: Acute on chronic systolic heart failure secondary to dilated cardiomyopathy status post ICD (EF 20 to 24%, TTE 2022) Underlying pulmonary hypertension Uncontrolled A-fib heart rate and alcohol abuse contributory INR therapeutic - diuresing well on room air - echo: pending - continue Lasix 40mg IV BID - Cardio on board - INR 2.4 continue coumadin 5mg daily except wed 10mg valvular heart disease (moderate MR/TR) aortic root/ascending aorta enlargement anxiety disorder, at baseline prediabetes, hemoglobin A1c of 6.15 June 2021 DT precautions, initiate DAVIS S with signs of alcohol withdrawal DVT prophylaxis. Coumadin INR goal between 2 and 3 Full code Admission and Anticipated Discharge Date Admission Date: November 07, 2022 Subjective ff up for acute on chronic systolic CHF exacerbation, etc seen resting in bed, comfortable on room air states he is feeling better compared to admission breathing is improving no cough, fever/chills no chest pain, dyspnea, palpitations, dizziness no other symptoms Review of Systems Review of Systems: all noted and negative except for above Physical Exam Physical Exam: General- oriented x 3, not in distress, speaks in sentences with no effort or accessory muscle use Eyes- anicteric Neck- no JVD Lungs- mild rales at the bases no wheezing good air entry BL Heart- normal rate, regular rhythm; no murmurs Abdomen- normal bowel sounds, nondistended, soft, nontender Extremities- no pretibial edema, no calf tenderness Neuro- alert, oriented x 3; no gross focal neurologic deficits Skin- warm & dry Results & Data Results & Data Vital Signs (Past 12 Hours) Vital Signs Temp Pulse Pulse Pulse Resp BP BP 11/08/22 16:28 105 H 11/08/22 16:00 11/08/22 15:57 36.4 C L 112 H 22 115/87 11/08/22 14:29 11/08/22 14:00 94 H 18 124/91 11/08/22 12:06 11/08/22 12:06 100 H 22 114/89 11/08/22 10:30 86 25 H 11/08/22 10:30 115/79 11/08/22 10:00 96 H 24 11/08/22 10:00 113/85 11/08/22 09:30 92 H 21 11/08/22 09:30 117/95 11/08/22 09:00 127 H 19 11/08/22 09:00 132/101 H 11/08/22 08:30 98 H 24 11/08/22 08:30 129/101 H 11/08/22 08:00 113 H 26 H 11/08/22 08:00 135/110 H 11/08/22 07:30 105 H 22 11/08/22 07:30 133/101 H 11/08/22 07:00 94 H 8 L 11/08/22 07:00 132/98 11/08/22 07:05 119 H 11/08/22 06:30 100 H 17 136/97 11/08/22 06:00 91 H 16 132/96 11/08/22 05:30 110 H 19 137/107 H 11/08/22 05:00 85 12 124/103 H Pulse Ox Pulse Ox O2 Del Method O2 Del Method 11/08/22 16:28 11/08/22 16:00 96 Room Air 11/08/22 15:57 97 Room Air 11/08/22 14:29 96 Room Air 11/08/22 14:00 96 Room Air 11/08/22 12:06 94 Room Air 11/08/22 12:06 94 Room Air 11/08/22 10:30 11/08/22 10:30 11/08/22 10:00 11/08/22 10:00 11/08/22 09:30 97 11/08/22 09:30 11/08/22 09:00 96 11/08/22 09:00 11/08/22 08:30 89 L 11/08/22 08:30 11/08/22 08:00 11/08/22 08:00 11/08/22 07:30 90 11/08/22 07:30 11/08/22 07:00 95 11/08/22 07:00 11/08/22 07:05 11/08/22 06:30 94 Room Air 11/08/22 06:00 93 Room Air 11/08/22 05:30 97 Room Air 11/08/22 05:00 91 Room Air all noted and reviewed including below
[2022-11-08] MEDS: WARFARIN SOD 5 MG TAB PO SCH (17:23)
[2022-11-08] MEDS: DIGOXIN 0.125 MG TAB PO SCH (17:24)
[2022-11-08] MEDS: FUROSEMIDE 40 MG/4 ML VIAL IV SCH (21:25)
[2022-11-09 07:01] LABS: INR 2.1 (0.9-1.1); Prothrombin Time 21.3 Seconds (9.0-12.0)
[2022-11-09 07:11] LABS: Calcium 9.3 mg/dl (8.6-10.3); Est GFR (African American) 58.3 ml/min; Est GFR (Non-African American) 50.3 ml/min; Magnesium 1.8 mg/dl (1.7-2.4); Potassium 3.7 mmol/L (3.5-5.1)
--- NOTE | 2022-11-09 09:14 | Cardiology Progress Note ---
Date of Service November 09, 2022 Assessment & Plan (1) Heart failure, systolic, with acute decompensation: (2) Permanent atrial fibrillation: (3) Atrial fibrillation with rapid ventricular response: (4) NYHA class 3 acute on chronic systolic heart failure: (5) Moderate mitral regurgitation: (6) Pulmonary hypertension: (7) Aortic root enlargement: (8) Stage III chronic kidney disease: (9) Chronic alcohol use: Plan Continue IV furosemide through today, reassessing ongoing need in the morning of 11/10 Supplement potassium orally. Titrate metoprolol for heart rate control (permanent atrial fibrillation) Continue digoxin 125 mcg on MWF Continue spironolactone Continue to hold lisinopril Strict I/Os, daily weights, sodium and fluid restriction, CHF education. Daily AM laboratory work Admission and Anticipated Discharge Date Admission Date: November 07, 2022 Subjective Patient seen and examined. Chart, medications, and telemetry reviewed. Overall feeling better. Improved dyspnea. No chest pain. No overt palpitations. No lower extremity peripheral edema. Telemetry patient ranging from the 80s to the 130s, heart rates predominantly in the 80s to 100 bpm range, improved from presentation. INR 2.1 I/O's -1,830 mL's overall. Review of Systems Review of Systems: Complete Review of Systems is as stated above, negative, or noncontributory. Physical Exam Physical Exam: General: A&Ox3. NAD. HENT: Normocephalic. Atraumatic. Eyes: PER. Conjunctiva pink, sclera clear. Neck: Normal JVP. + HJR. No carotid bruits. Heart: Irregularly irregular at 100 bpm. Soft apical systolic murmur. Displaced PMI. Lungs: Absent breath sounds on the right. Bibasilar rales. No wheeze. Abdomen: +BS. Soft. Pulsatile liver with hepatomegaly. Nontender. Extremities: No clubbing. No cyanosis. No edema. Limited neurological examination is without focal deficits. Pulses: radial=2/4, posterior tibial=1/4. Results & Data Vital Signs (Past 12 Hours) Vital Signs Temp Pulse Pulse Resp BP Pulse Ox Pulse Ox 11/09/22 08:15 36.6 C 94 H 18 121/92 92 11/09/22 05:17 36.4 C L 79 16 112/79 94 03/27/23 23:00 36.7 C 95 H 18 115/85 93 11/09/22 00:00 93 O2 Del Method O2 Del Method 11/09/22 08:15 Room Air 11/09/22 05:17 Room Air 11/08/22 23:00 Room Air 11/09/22 00:00 Room Air Laboratory Results Coagulation 11/09/22 Range/Units 06:28 PT 21.3 H (9.0-12.0) Seconds Comprehensive Metabolic Panel 11/09/22 Range/Units 06:28 Sodium 140 (136-145) mmol/L Potassium 3.7 (3.5-5.1) mmol/L Chloride 100 (98-107) mmol/L Carbon Dioxide 32 (21-32) mmol/L BUN 32 H (6-23) mg/dl Creatinine 1.39 D (0.6-1.4) mg/dl Glucose 94 (70-99(Fasting)) mg/dl Calcium 9.3 (8.6-10.3) mg/dl Intake and Output 11/08/22 11/09/22 11/09/22 22:59 06:59 14:59 Intake Total 80 / 280 200 / 280 Output Total 0 / 1000 Balance 80 / -720 200 / -720 Intake: Oral 80 / 280 200 / 280 Output: Urine 0 / 1000 Other: Weight 78.5 kg 75.1 kg Weight Measurement Method Built in [facility] Built in [facility]
[2022-11-09] MEDS ORDERED: POTASSIUM CHLORIDE CRTAB 20 MEQ TABCR PO ONE (09:15)
[2022-11-09] MEDS: FOLIC ACID 1 MG TAB PO SCH (09:17)
[2022-11-09] MEDS: THIAMINE HCL 100 MG TAB PO SCH (09:18)
[2022-11-09] MEDS: SPIRONOLACTONE 12.5 MG TAB PO SCH (09:18)
[2022-11-09] MEDS: MULTIVITAMIN TAB PO SCH (09:18)
[2022-11-09] MEDS: FUROSEMIDE 40 MG/4 ML VIAL IV SCH ×2 (09:19→21:23)
[2022-11-09] MEDS: METOPROLOL SUCC 25MG EXT REL TAB PO SCH ×2 (09:19→21:23)
--- NOTE | 2022-11-09 16:48 | Hospitalist Progress Note ---
Date of Service November 09, 2022 Assessment & Plan (1) Decompensated heart failure: Plan: Acute on chronic systolic heart failure secondary to dilated cardiomyopathy status post ICD (EF 20 to 24%, TTE 2022) Underlying pulmonary hypertension Uncontrolled A-fib heart rate and alcohol abuse contributory INR therapeutic - diuresing well on room air - continue Lasix 40mg IV BID - Cardio on board Titrate metoprolol for heart rate control (permanent atrial fibrillation) Continue digoxin 125 mcg on MWF Continue spironolactone Continue to hold lisinopril - INR 2.1 continue coumadin 5mg daily except wed 10mg valvular heart disease (moderate MR/TR) aortic root/ascending aorta enlargement anxiety disorder, at baseline prediabetes, hemoglobin A1c of 6.15 June 2021 DT precautions, initiate DAVIS S with signs of alcohol withdrawal DVT prophylaxis. Coumadin INR goal between 2 and 3 Full code Disposition Pending PT and OT evaluation Lives at home Admission and Anticipated Discharge Date Admission Date: November 07, 2022 Subjective Follow-up for acute systolic and diastolic congestive heart failure, etc. Seen sitting up in bed, comfortable, on room air In good spirits States he feels improved today overall Breathing continues to improve, no cough, fevers or chills No chest pain, palpitations, dizziness No other new symptoms Review of Systems Review of Systems: all noted and negative except for above Physical Exam Physical Exam: General- oriented x 3, not in distress, speaks in sentences with no effort or accessory muscle use Eyes- anicteric Neck- no JVD Lungs-faint crackles at the bases, no wheezing, good air entry bilaterally Heart- normal rate, regular rhythm; no murmurs Abdomen- normal bowel sounds, nondistended, soft, nontender Extremities- no pretibial edema, no calf tenderness Neuro- alert, oriented x 3; no gross focal neurologic deficits Skin- warm & dry Results & Data Results & Data Vital Signs (Past 12 Hours) Vital Signs Temp Pulse Pulse Pulse Resp BP Pulse Ox 11/09/22 16:30 79 11/09/22 15:39 36.8 C 94 H 18 101/83 97 11/09/22 14:38 74 11/09/22 14:00 11/09/22 12:34 36.6 C 85 18 94/77 L 94 11/09/22 08:00 11/09/22 08:00 11/09/22 08:15 36.6 C 94 H 18 121/92 92 11/09/22 05:17 36.4 C L 79 16 112/79 94 Pulse Ox O2 Del Method O2 Del Method 11/09/22 16:30 11/09/22 15:39 Room Air 11/09/22 14:38 11/09/22 14:00 97 Room Air 11/09/22 12:34 Room Air 11/09/22 08:00 Room Air 11/09/22 08:00 97 Room Air 11/09/22 08:15 Room Air 11/09/22 05:17 Room Air all noted and reviewed including below
[2022-11-09] MEDS: WARFARIN SOD 5 MG TAB PO SCH (16:51)
[2022-11-10 07:36] LABS: INR 2.1 (0.9-1.1); Prothrombin Time 21.5 Seconds (9.0-12.0)
[2022-11-10 08:15] LABS: BUN Creatinine Ratio 27.8 (10-20); Calcium 9.5 mg/dl (8.6-10.3); Est GFR (African American) 65.6 ml/min; Est GFR (Non-African American) 56.6 ml/min; Magnesium 1.8 mg/dl (1.7-2.4); Potassium 3.7 mmol/L (3.5-5.1)
--- NOTE | 2022-11-10 08:34 | XRay Report ---
XR chest 2V PA/lateral HISTORY: Congestive heart failure. Pleural fluid. Shortness of breath. COMPARISON: 11/07/2022. FINDINGS: No pneumothorax. A small right pleural effusion has improved. The pulmonary edema has resol esmer in the interval. No new focal lung consolidations. The heart remains enlarged. Is left-sided pace maker/defibrillator again noted. IMPRESSION: Interval resolution of pulmonary edema with decrease in size in the small right pleural effusion. ACT 112: Negative or not required by law. Electronically signed by: Arben Sosa M.D. 11/10/2022 8:33 AM
[2022-11-10] MEDS: SPIRONOLACTONE 12.5 MG TAB PO SCH (09:02)
[2022-11-10] MEDS: MULTIVITAMIN TAB PO SCH (09:04)
[2022-11-10] MEDS: METOPROLOL SUCC 25MG EXT REL TAB PO SCH (09:04)
[2022-11-10] MEDS: THIAMINE HCL 100 MG TAB PO SCH (09:05)
[2022-11-10] MEDS: FOLIC ACID 1 MG TAB PO SCH (09:05)
--- NOTE | 2022-11-10 10:55 | Cardiology Progress Note ---
Date of Service November 10, 2022 Assessment & Plan (1) Heart failure, systolic, with acute decompensation: (2) Permanent atrial fibrillation: (3) Atrial fibrillation with rapid ventricular response: (4) NYHA class 3 acute on chronic systolic heart failure: (5) Moderate mitral regurgitation: (6) Pulmonary hypertension: (7) Aortic root enlargement: (8) Stage III chronic kidney disease: (9) Chronic alcohol use: Plan Discontinue IV furosemide Initiate oral furosemide, 40 mg once per day Utilize spironolactone 12.5 mg daily in the morning Continue current dose of metoprolol (75 mg twice a day) and digoxin (125 mcg MWF). No lisinopril. Sodium and fluid restrictions discussed Outpatient cardiology follow-up on November 29, 2022 at 3:30 PM, or as needed. Admission and Anticipated Discharge Date Admission Date: November 07, 2022 Subjective Patient seen and examined. Chart, medications, and telemetry reviewed. Patient notes feeling better overall. Less cough, improved dyspnea. No chest pain. No palpitations. No dizziness or lightheadedness. Notes being ambulatory without difficulty. Hypotension noted this morning, asymptomatic. IV furosemide held/discontinued. Continuous telemetry monitoring reveals atrial fibrillation with ventricular rate appearing to be predominantly controlled. Review of Systems Review of Systems: Complete Review of Systems is as stated above, negative, or noncontributory. Physical Exam Physical Exam: General: A&Ox3. NAD. HENT: Normocephalic. Atraumatic. Eyes: PER. Conjunctiva pink, sclera clear. Neck: Normal JVP. + HJR. No carotid bruits. Heart: Irregularly irregular at 90 bpm. Soft apical systolic murmur. Displaced PMI. Lungs: Absent breath sounds on the right. Bibasilar rales. No wheeze. Abdomen: +BS. Soft. Pulsatile liver with hepatomegaly. Nontender. Extremities: No clubbing. No cyanosis. No edema. Limited neurological examination is without focal deficits. Pulses: radial=2/4, posterior tibial=1/4. Results & Data Vital Signs (Past 12 Hours) Vital Signs Temp Pulse Pulse Resp BP Pulse Ox Pulse Ox 11/10/22 08:00 11/10/22 08:00 96 11/10/22 08:50 93/50 L 11/10/22 08:13 36.4 C L 90 19 81/61 L 94 11/10/22 04:03 36.7 C 80 19 94/60 L 93 11/10/22 00:00 77 11/10/22 00:00 96 11/09/22 23:22 36.6 C 79 20 86/62 L 96 O2 Del Method O2 Del Method 11/10/22 08:00 Room Air 11/10/22 08:00 Room Air 11/10/22 08:50 11/10/22 08:13 Room Air 11/10/22 04:03 Room Air 11/10/22 00:00 11/10/22 00:00 Room Air 11/09/22 23:22 Room Air Laboratory Results Coagulation 11/10/22 Range/Units 06:57 PT 21.5 H (9.0-12.0) Seconds Comprehensive Metabolic Panel 11/10/22 Range/Units 06:57 Sodium 139 (136-145) mmol/L Potassium 3.7 (3.5-5.1) mmol/L Chloride 98 (98-107) mmol/L Carbon Dioxide 32 (21-32) mmol/L BUN 35 H (6-23) mg/dl Creatinine 1.26 (0.6-1.4) mg/dl Glucose 85 (70-99(Fasting)) mg/dl Calcium 9.5 (8.6-10.3) mg/dl Intake and Output 11/09/22 11/10/22 11/10/22 22:59 06:59 14:59 Intake Total Balance Intake: Oral Other: # Unmeasured Voids 1 3 Weight 73.4 kg
--- NOTE | 2022-11-10 11:23 | Hospitalist Progress Note ---
Date of Service November 10, 2022 Assessment & Plan (1) Decompensated heart failure: Plan: Acute on chronic systolic heart failure secondary to dilated cardiomyopathy status post ICD (EF 20 to 24%, TTE 2022) Underlying pulmonary hypertension Uncontrolled A-fib heart rate and alcohol abuse contributory INR therapeutic - diuresing well on room air - continue Lasix 40mg IV BID - Cardio on board Titrate metoprolol for heart rate control (permanent atrial fibrillation) Continue digoxin 125 mcg on MWF Continue spironolactone Continue to hold lisinopril - INR 2.1 continue coumadin 5mg daily except wed 10mg valvular heart disease (moderate MR/TR) aortic root/ascending aorta enlargement anxiety disorder, at baseline prediabetes, hemoglobin A1c of 6.15 June 2021 DT precautions, initiate DAVIS S with signs of alcohol withdrawal DVT prophylaxis. Coumadin INR goal between 2 and 3 Full code Disposition Pending PT and OT evaluation Lives at home Admission and Anticipated Discharge Date Admission Date: November 07, 2022 Subjective 11/10/2022 The patient was seen and examined in telemetry unit He has been feeling much better and denies any symptoms even though his blood pressure remains on the lower side at systolic 90s He has had physical therapy without any dizziness, palpitation, chest pain or shortness of breath No other symptoms and he wants to go home Review of Systems Review of Systems: All systems reviewed and are unremarkable except as noted below Physical Exam Physical Exam: Lying in bed comfortably Constitutional: well developed, well nourished and average body habitus; not ill appearing Eyes: PERRL, conjunctivae normal, anicteric sclerae ENMT: external ear and nose normal, oropharynx normal Neck: trachea midline, no thyromegaly Respiratory: no respiratory distress Auscultation: lungs clear to auscultation bilaterally Cardiovascular: Rate/Rhythm: + irregularly irregular; not tachycardic Heart Sounds: normal S1 and normal S2; no murmur Extremities: no edema Gastrointestinal (Abdomen): Inspection/Auscultation: normal bowel sounds; abdomen not distended Percussion/Palpation: abdomen soft; abdomen nontender Musculoskeletal: No acute arthritis involving any joint Neurologic: Alert, awake and oriented x3. No focal sensory or motor deficit appreciated Psychiatric: A+Ox3, euthymic affect Lymphatic: no cervical or axillary lymphadenopathy Results & Data Results & Data Vital Signs (Past 12 Hours) Vital Signs Temp Pulse Pulse Resp BP Pulse Ox Pulse Ox 11/10/22 08:00 11/10/22 08:00 96 11/10/22 08:50 93/50 L 11/10/22 08:13 36.4 C L 90 19 81/61 L 94 11/10/22 04:03 36.7 C 80 19 94/60 L 93 11/10/22 00:00 77 11/10/22 00:00 96 11/09/22 23:22 36.6 C 79 20 86/62 L 96 O2 Del Method O2 Del Method 11/10/22 08:00 Room Air 11/10/22 08:00 Room Air 11/10/22 08:50 11/10/22 08:13 Room Air 11/10/22 04:03 Room Air 11/10/22 00:00 11/10/22 00:00 Room Air 11/09/22 23:22 Room Air Laboratory Results BMP 11/10/22 06:57 Sodium 139 Potassium 3.7 Chloride 98 Carbon Dioxide 32 BUN 35 H Creatinine 1.26 Glucose 85 Calcium 9.5 Medications Administered Current Inpatient Medications Acetaminophen (Acetaminophen 325 Mg Tab) 650 mg PO Q4H PRN PRN Reason: Pain or Fever Stop: 12/08/22 01:19 Alprazolam (Alprazolam 0.5 Mg Tablet) 0.25 mg PO TID PRN PRN Reason: Anxiety Stop: 12/08/22 01:19 Digoxin (Digoxin 0.125 Mg Tab) 0.125 mg PO [id number]@1600 [facility] Stop: 12/08/22 15:59 Last Admin: 11/08/22 17:24 Dose: 0.125 mg Folic Acid (Folic Acid 1 Mg Tab) 1 mg PO QAM [facility] Stop: 12/08/22 08:59 Last Admin: 11/10/22 09:05 Dose: 1 mg Furosemide (Furosemide 40 Mg Tab) 40 mg PO QAM [facility] Stop: 12/11/22 08:59 Metoprolol Succinate (Metoprolol Succ 25mg Ext Rel Tab) 75 mg PO BID [facility] Stop: 12/08/22 07:29 Last Admin: 11/10/22 09:04 Dose: 75 mg Multivitamins (Multivitamin Tab) 1 tab PO DAILY [facility] Stop: 12/08/22 08:59 Last Admin: 03/29/23 09:04 Dose: 1 tab Nitroglycerin (Nitroglycerin Sl 0.4 Mg/Tab Tab) 0.4 mg SL Q5M PRN PRN Reason: Chest Pain Stop: 12/08/22 01:19 Spironolactone (Spironolactone 12.5 Mg Tab) 12.5 mg PO DAILY [facility] Stop: 12/09/22 08:59 Last Admin: 11/10/22 09:02 Dose: Not Given Thiamine HCl (Thiamine Hcl 100 Mg Tab) 100 mg PO DAILY [facility] Stop: 12/08/22 08:59 Last Admin: 11/10/22 09:05 Dose: 100 mg Warfarin Sodium (Warfarin Sod 5 Mg Tab) 5 mg PO [id number]@1600 [facility] Stop: 12/08/22 15:59 Last Admin: 11/09/22 16:51 Dose: 5 mg Warfarin Sodium (Warfarin Sod 10 Mg Tab) 10 mg PO We@1600 [facility] Stop: 12/10/22 15:59
[2022-11-10] MEDS: DIGOXIN 0.125 MG TAB PO SCH (15:28)
[2022-11-10] MEDS ORDERED: WARFARIN SOD 10 MG TAB PO SCH (16:00)
--- NOTE | 2022-11-11 08:24 | Discharge Summary ---
Date of Service November 10, 2022 Admission HPI Per Admitting Provider History obtained from patient, family, and records. Medical history significant for chronic systolic heart failure secondary to dilated cardiomyopathy status post ICD (EF 20 to 24%, TTE 2022), A-fib on Coumadin, valvular heart disease (moderate MR/TR), aortic root/ascending aorta enlargement, pulmonary hypertension, hypertension, hyperlipidemia, anxiety disorder, prediabetes, alcohol abuse as per records. Patient seen at [facility] cardiology office on follow-up visit 5 days ago. Patient complained of fatigue and shortness of breath on exertion, orthopnea and palpitation symptoms. No peripheral edema. Outpatient chest x-ray showed Right greater than left pleural effusions and atelectasis and cardiomegaly; no evidence of acute pulmonary edema. Outpatient TTE results as follows There was atrial fibrillation during the examination. The left ventricular cavity size is severely enlarged. There is severe diffuse left ventricular hypokinesis. The qualitative LV ejection fraction is 20-24% (severely reduced). Severe biatrial enlargement is present. Moderate mitral regurgitation is present. Moderate tricuspid regurgitation is present. Dilated IVC with reduced collapsability with sniff indicates an elevated right atrial pressure of 15 mmHg. The estimated pulmonary artery systolic pressure is 55 mm Hg. The aortic root is mildly enlarged, 4.1 cm. The proximal ascending thoracic aorta is mildly enlarged, 4.4 cm. TSH within normal limits. ICD interrogation discloses persistent A-fib with uncontrolled ventricular rates with note of 44 episodes of NSVT since May 2022. Patient instructed to hold lisinopril to allow for additional rate lowering medications. Toprol-XL dose increased and digoxin initiated. As needed Lasix and spironolactone both changed from as needed to 20 mg 3 times a week dosing due to decompensated CHF concerns. Worsening exertional SOB symptoms despite compliance with new regimen. Patient actually losing weight. No chest pain. Leg swelling somewhat the same. Denies headache symptoms. IV Lasix administered at the ER. Medical History as above Surgical History : ICD Family History : AAA Personal/Social history : Non-smoker, alcohol abuse as per records, [employer] Admission Exam Per Admitting Provider Physical Exam: GENERAL: Comfortable, slightly anxious, chronically ill, no respiratory distress SKIN: Normal color, warm HEENT: [place] palpebral conjunctivae, no ptosis, dry buccal mucosa NECK : Supple, no tenderness CHEST : CTA, no tenderness HEART : Irregular, tachycardic, systolic murmur ABDOMEN: Some distention, nontender EXTREMITIES : Minimal LE swelling, no LE tenderness, no other conspicuous deformities noted NEUROLOGIC : Coherent, no facial asymmetry, no other gross focality Principal Diagnosis Acute on chronic systolic heart failure, dilated cardiomyopathy status post ICD, EF of 20 to 24% as of 2022 Discharge Exam Lying in bed comfortably Constitutional well developed, well nourished and average body habitus; not ill appearing Eyes PERRL, conjunctivae normal, anicteric sclerae ENMT external ear and nose normal, oropharynx normal Neck trachea midline, no thyromegaly Respiratory no respiratory distress Auscultation: lungs clear to auscultation bilaterally Cardiovascular Rate/Rhythm: + irregularly irregular; not tachycardic Heart Sounds: normal S1 and normal S2; no murmur Extremities: no edema Gastrointestinal (Abdomen) Inspection/Auscultation: normal bowel sounds; abdomen not distended Percussion/Palpation: abdomen soft; abdomen nontender Psychiatric A+Ox3, euthymic affect Lymphatic no cervical or axillary lymphadenopathy Discharge Data Allergies Allergy/AdvReac Type Severity Reaction Status Date / Time No Known Allergies Allergy Unknown Verified 11/07/22 20:17 Consultations 11/08/22 01:20 Consult Cardiology Routine Hospital Course (1) Decompensated heart failure: Acute on chronic systolic heart failure secondary to dilated cardiomyopathy status post ICD (EF 20 to 24%, TTE 2022) Underlying pulmonary hypertension Uncontrolled A-fib heart rate and alcohol abuse contributory INR therapeutic - diuresing well on room air - continue Lasix 40mg IV BID - Cardio on board Titrate metoprolol for heart rate control (permanent atrial fibrillation) Continue digoxin 125 mcg on MWF Continue spironolactone Continue to hold lisinopril - INR 2.1 continue coumadin 5mg daily except wed 10mg valvular heart disease (moderate MR/TR) aortic root/ascending aorta enlargement anxiety disorder, at baseline prediabetes, hemoglobin A1c of 6.15 June 2021 DT precautions, initiate DAVIS S with signs of alcohol withdrawal DVT prophylaxis. Coumadin INR goal between 2 and 3 Full code Disposition Pending PT and OT evaluation Lives at home Total Time Total Time Spent Total Time Spent (In Minutes): 35 minutes Discharge Plan Discharge Items Patient Disposition: Home - Self-Care Reason For Visit: chf Discharge Diagnosis: Acute on chronic systolic heart failure, dilated cardiomyopathy status post ICD, EF of 20 to 24% as of 2022 Condition on Discharge: Fair Activity: Resume your previous activity Non-emergency contact: Primary Care Provider Call non-emergency contact if: you have any medication questions and your symptoms worsen Follow-up/Referrals: Jeffery Naidu [Physician Entomology Professor] - (Date & Time 11/29/2022 3:30 PM Provider Jeffery Naidu PA-C Department Cardiology, [facility] ) Aquiles Trevino MD [Primary Care Provider] - (Date & Time 11/17/2022 11:00 AM Provider Aquiles Trevino MD Department Family Practice [facility] ) Diet: Heart Healthy and Low Sodium (2gm) Fluids: 1500ml (6 cups) Addtl Attending Provider Instructions: Please take precautions to avoid falls Take your medications as advised-you are metoprolol succinate has been increased to 75 mg twice daily and furosemide to 40 mg daily Please keep appointments with your healthcare providers Have regular follow-up with the coagulation clinic Pending Studies at Discharge: No Stand-Alone Forms: My [facility] [employer], Smoking Cessation Medications and DC Order Prescriptions: New folic acid 1 mg Tablet 1 mg PO QAM 30 Days Qty: 30 0RF metoprolol succinate [Toprol XL] 50 mg tablet extended release 24 hr 75 mg PO BID Qty: 90 0RF furosemide 40 mg tablet 40 mg PO DAILY Qty: 30 0RF Continued digoxin 125 mcg (0.125 mg) tablet 125 mcg PO 3XWK Rx Instructions: TAKES MON, WED, & FRI. multivitamin Tablet 1 tab PO DAILY thiamine HCl (vitamin B1) 100 mg Tablet 100 mg PO DAILY spironolactone 25 mg Tablet 12.5 mg PO 3XWK Rx Instructions: TAKES MON, WED, & FRI. alprazolam [Xanax] 0.25 mg Tablet 0.25 mg PO TID PRN (Reason: Anxiety) warfarin 5 mg Tablet See Rx Instructions .ROUTE .COMPLEX Rx Instructions: TAKES 10 MG ON WEDNESDAYS ONLY, THEN 5 MG EVERY OTHER DAY Q EVENING. Discontinued metoprolol succinate 50 mg tablet extended release 24 hr 50 mg PO BID furosemide [Lasix] 20 mg Tablet 20 mg PO 3XWK Rx Instructions: TAKES MON, WED, & FRI. Discharge Orders: Discharge Order- CHF (Routine); Ordered 11/10/22 Ordered By: Tiff Chun Admission Data Admit Date/Time: 11/07/22 23:36 Attending Provider: Tiff Chun Admit Provider: Rc Calvillo Primary Care Provider: Aquiles Trevino Other Providers: Tiffanie Smith ; Cabrera Ryder ; Ventura Reese ; Ross Randall ; Fei Ryan ; Austin Choi ; Jeffery Naidu ; Karen Moody ; Shayna Cheatham ; Tiffanie Levin ; Marlo Tellez ; Omero Oneal ; Miguel Ángel Tong Other Interventions: Discharge Summary Assessment (RN) Last Done: 11/10/22 15:57
[2022-11-11] MEDS ORDERED: FUROSEMIDE 40 MG TAB PO SCH (09:00)
== END 2022-11-10 17:24 | disposition home or self-care (01) | DRG 292 ==
LOC: ED 19:05 → EDINP 23:36 → SUATTDRO 23:36 → 2E 11-08 01:19